=== PATIENT | male | born 1985 | race Caucasian/White ===

== ENCOUNTER 2017-10-07 20:58 | Emergency (ER) | payer SELFPAY ==
[2017-10-07] MEDS: DIPHTH/TET/ACEL PERTUSS (ADULT) 0.5 ML VIAL IM* (22:53)
== END 2017-10-07 23:39 | disposition home or self-care (01) ==
LOC: FTE 20:58
DX: S01.01XA Laceration without foreign body of scalp, initial encounter (principal); V28.0XXA Motorcycle driver injured in noncollision transport accident in nontraffic accident, initial encounter; Z23 Encounter for immunization
CPT/HCPCS: 90471; 90715; 99283-25